=== PATIENT | male | born 1995 | race Caucasian/White ===

== ENCOUNTER 2016-10-29 06:49 | Emergency (ER) | payer BC ==
[~2016-10-29 06:49] MED LIST: CORTISONE14 GM TOP; MOTRIN600 MG PO; NO MEDICATIONS
[2016-10-29 07:03] LABS: BASOPHIL# 0.1 X10e3 (0.0-0.3); BASOPHIL% 1.4 % (0.0-2.5); EOSINOPHIL# 0.2 X10e3 (0.0-0.7); EOSINOPHIL% 3.6 % (0.0-7.0); HEMATOCRIT 45.6 % (38.0-50.0); HEMOGLOBIN 15.6 gm/dl (13.0-17.0); LYMPHOCYTE# 1.7 X10e3 (1.0-3.5); LYMPHOCYTE% 33.2 % (17.0-45.0); MEAN CELL VOLUME 91.3 FL (83-96); MEAN CORPUSCULAR HEMOGLOBIN 31.1 PG (28-34); MEAN CORPUSCULAR HGB CONC 34.1 g/dL (30-36); MONOCYTE# 0.5 X10e3 (0.0-1.0); MONOCYTE% 10.2 % (3.0-12.0); NEUTROPHIL# 2.6 X10e3 (1.5-7.1); NEUTROPHIL% 51.6 % (40.0-75.0); PLATELET COUNT 237 X10e3 (140-420); RED BLOOD COUNT 4.99 X10e6 (3.90-5.60); RED CELL DISTRIBUTION WIDTH 11.4 % (11.0-15.5); WHITE BLOOD COUNT 5.1 X10e3 (4.0-10.5)
[2016-10-29 07:04] LABS: DIFF IND NO
[2016-10-29 07:23] LABS: ALBUMIN SERUM 4.8 g/dL (3.5-5.0); ALKALINE PHOSPHATASE 48 U/L (32-92); ALT (SGPT) 19 U/L (10-40); AST (SGOT) 24 U/L (10-42); BILIRUBIN,TOTAL 0.4 mg/dL (0.2-2.0); BLOOD UREA NITROGEN 17 mg/dL (9-23); BUN/CREATININE RATIO 15.45; CALCIUM SERUM 9.4 mg/dL (8.4-10.2); CARBON DIOXIDE 28 mmol/L (22-31); CHLORIDE 105 mmol/L (100-111); CREATININE SERUM 1.1 mg/dL (0.6-1.4); GLOM FILT RATE Estimated ABOVE60 mL/min (>60); GLUCOSE FASTING 111 mg/dL (70-110); LIPASE 32 U/L (22-51); POTASSIUM 3.7 mmol/L (3.5-5.1); PROTEIN TOTAL SERUM 7.7 g/dL (6.0-8.3); SODIUM 141 mmol/L (135-145)
[2016-10-29 07:32] LABS: BILIRUBIN, DIRECT <0.1 mg/dL (0.0-0.2); BILIRUBIN,INDIRECT 0.3 mg/dL (0.0-0.9)
[2016-10-29 08:39] LABS: URINE SOURCE CLEAN CATCH
[2016-10-29 08:42] LABS: URINE APPEARANCE SL CLOUDY; URINE BLOOD 3+ (NEG); URINE COLOR DK YELLOW; URINE GLUCOSE NEG (NORM); URINE KETONE TRACE (NEG); URINE LEUKOCYTE ESTERASE NEG (NEG); URINE NITRATE NEG (NEG); URINE PH 7.5 (5-8); URINE PROTEIN 2+ (NEG); URINE UROBILINOGEN 0.2 MG/DL (NORM)
[2016-10-29 08:44] LABS: MICRO INDICATED? YES
[2016-10-29 08:45] LABS: URINE BILIRUBIN NEG (NEG)
[2016-10-29 08:48] LABS: CULTURE INDICATED? NO; URINE BACTERIA NEG (NEG); URINE MUCUS PRESENT; URINE RBC INNUM /[HPF] (0-2); URINE WBC 0-2 /[HPF] (0-5)
== END 2016-10-29 09:26 | disposition home or self-care (01) ==
LOC: SED 06:49
PROVIDERS: Emergency Medicine
DX: N20.1 Calculus of ureter (principal); R19.7 Diarrhea, unspecified; Z88.2 Allergy status to sulfonamides
CPT/HCPCS: 36415; 80048; 80076; 81003; 83690; 85025; 96361; 96374; 96375; 99284; J1170; J1885; J2405

== ENCOUNTER → 2016-11-05 | Outpatient (CLI) | payer BC ==
--- NOTE | ~2016-11-05 | CT4 ---
[facility] A Service of [facility] & [facility] RADIOLOGY TEXT RESULTS PATIENT: ARBEN WONG LOCATION: [facility] : [birth year] UNIT #: [id number] AGE: [address]: Ismael Avendano MD SEX: M ORDER DR: [id number] [facility] [address] [place], [place] [address] [id number] O MR#: [id number] Acc #: [id number] NAME: ARBEN WONG. : 1995 SEX: M STUDY DATE/TIME: 11/05/2016 11:01 UNIT: [facility] ROOM: STUDY DESCRIPTION: CT Abd and Pelv Wo Cont Attending Physician: Ismael Avendano M.D. Ordering Physician: Ismael Avendano M.D. Primary Care Physician: Jimenez Sharpe M.D. MEDICAL IMAGING REPORT This report is preliminary unless electronic signature is present EXAM Abdomen and pelvis CT no contrast 11/05/2016 INDICATION 21-year-old male with a history of renal stones. Right-sided pain 8 days, hematuria (gross). History of stones. TECHNIQUE Noncontrast abdomen and pelvis CT was performed and compared with 09/16/2015. This CT examination was performed with one or more of the following radiation dose reduction techniques: automatic exposure control, adjustment of mA and/or kV according to patient size, and iterative reconstruction. FINDINGS CT ABDOMEN: Exam markedly degraded by noncontrast technique. Included lung bases are clear. Aorta unremarkable. Spleen, adrenal glands, pancreas, gallbladder and liver unremarkable. There is no hydronephrosis of either kidney. Tiny punctate 2 mm stone in the glz-dz-rjecb pole left kidney. Previously demonstrated right-sided renal stone no longer present. Ureters not well visualized or assessed but no secondary sign of obstruction on either side. CT PELVIS: Bladder unremarkable. No drainable fluid collection in the pelvis. Prostate within normal limits. Appendix normal. Bowel unremarkable. Inguinal canals unremarkable. There is no suspicious bone lesion. 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 Schmorl's node deformity superior endplate of L3 unchanged. IMPRESSION 1. Nonobstructing 2 mm stone in the left kidney. No hydronephrosis on either side. [facility]. [facility] A Service of [facility] & [facility] RADIOLOGY TEXT RESULTS PATIENT: ARBEN WONG LOCATION: [facility] #: [id number] : [birth year] UNIT #: [id number] AGE: [address]: Ismael Avendano MD SEX: M ORDER DR: 2. The appendix is normal. 3. The examination is otherwise negative. Incidental pars defects at L5-S1. Dictated by... Juan Manuel Minor M.D. THIS IS AN ELECTRONICALLY VERIFIED REPORT Juan Manuel Minor M.D. at 11/07/2016 2:29 PM DOMINIC/marcus TD: 11/07/2016 13:53 JOB #: [id number] MEDICAL IMAGING REPORT COPY
== END | disposition home or self-care (01) ==
LOC: CCAT 10:37
DX: N20.0 Calculus of kidney (principal)
CPT/HCPCS: 74176